=== PATIENT | male | born 1985 | race Caucasian/White ===

== ENCOUNTER 2018-09-06 07:58 | Emergency (ER) | payer SELFPAY ==
[2018-09-06] MEDS ORDERED: Ketorolac 60 MG/2 ML SDV IM ONE (08:13)
--- NOTE | 2018-09-06 08:19 | EDM.PDOC ---
ED HPI GENERAL MEDICAL PROBLEM - General Chief Complaint: Upper Extremity Injury/Pain Stated Complaint: LEFT ELBOW PAIN Time Seen by Provider: 09/06/18 08:13 - History of Present Illness INITIAL COMMENTS - FREE TEXT/NARRATIVE: HISTORY AND PHYSICAL: History of present illness: Patient 32-year-old white male with history of gouty arthritis presents with concern of acute right elbow pain this started somewhat yesterday and became quite severe today he denies any trauma he states this is exquisitely tender in any types of movement causes significant pain. He is not had involvement of his elbow on the past as related to his gouty arthritis is almost universally involved his toe. Review of systems: As per history of present illness and below otherwise all systems reviewed and negative. Past medical history: As per history of present illness and as reviewed below otherwise noncontributory. Surgical history: As per history of present illness and as reviewed below otherwise noncontributory. Social history: No reported history of drug or alcohol abuse. Family history: As per history of present illness and as reviewed below otherwise noncontributory. Physical exam: HEENT: Atraumatic, normocephalic, pupils reactive, negative for conjunctival pallor or scleral icterus, mucous membranes moist, throat clear, neck supple, nontender, trachea midline. Lungs: Clear to auscultation, breath sounds equal bilaterally, chest nontender. Heart: S1S2, regular, negative for clicks, rubs, or JVD. Abdomen: Soft, nondistended, nontender. Negative for masses or hepatosplenomegaly. Negative for costovertebral tenderness. Pelvis: Stable nontender. Genitourinary: Deferred. Rectal: Deferred. Extremities: Right elbow has some minor swelling and slight warmth to touch there's no significant erythema is no crepitation neurovascular exam is unremarkable he has limited range of motion secondary to pain.. Neuro: Awake, alert, oriented. Cranial nerves II through XII unremarkable. Cerebellum unremarkable. Motor and sensory unremarkable throughout. Exam nonfocal. Diagnostics: X-ray right elbow CBC uric acid Therapeutics: Toradol 60 mg IM Impression: #1 acute right elbow pain #2 history of gouty arthritis Definitive disposition and diagnosis as appropriate pending reevaluation and review of above. right elbow Pain Score (Numeric/FACES): 10 - Related Data Allergies Allergy/AdvReac Type Severity Reaction Status Date / Time No Known Allergies Allergy Verified 09/06/18 08:02 Home Meds: Home Meds . [No Known Home Meds] 09/06/18 [History] Past Medical History Musculoskeletal History: Reports: Gout - Infectious Disease History Infectious Disease History: Reports: Chicken Pox Social & Family History - Family History Family Medical History: Noncontributory - Tobacco Use Smoking Status *Q: Never Smoker - Recreational Drug Use Recreational Drug Use: No Review of Systems - Review of Systems Review Of Systems: ROS reveals no pertinent complaints other than HPI. ED EXAM, GENERAL - Physical Exam Exam: See Below (See dictation) Course - Vital Signs Last Recorded V/S: Last Vital Signs Temp 35.8 C 09/06/18 08:02 Pulse 102 H 09/06/18 08:02 Resp 18 09/06/18 08:02 BP 152/101 H 09/06/18 08:02 Pulse Ox 97 09/06/18 08:02 - Orders/Labs/Meds Orders: Active Orders 24 hr Category Date Time Status Elbow Min 3V Rt [CR] Stat Exams 09/06/18 08:13 Ordered CBC WITH AUTO DIFF [HEME] Stat Lab 09/06/18 08:13 Ordered URIC ACID [CHEM] Stat Lab 09/06/18 08:13 Ordered Meds: Medications Discontinued Medications Generic Name Dose Route Start Last Admin Trade Name [place] PRN Reason Stop Dose Admin Ketorolac Tromethamine 60 mg 09/06/18 08:13 09/06/18 08:20 Toradol IM 09/06/18 08:14 60 mg ONETIME ONE Administration Departure - Departure Time of Disposition: 08:23 Disposition: Home, Self-Care 01 Condition: Good Clinical Impression: Elbow pain, History of gout - Discharge Information Forms: ED Department Discharge Additional Instructions: The following information is given to patients seen in the emergency department who are being discharged to home. This information is to outline your options for follow-up care. We provide all patients seen in our emergency department with a follow-up referral. The need for follow-up, as well as the timing and circumstances, are variable depending upon the specifics of your emergency department visit. If you don't have a primary care physician on staff, we will provide you with a referral. We always advise you to contact your personal physician following an emergency department visit to inform them of the circumstance of the visit and for follow-up with them and/or the need for any referrals to a consulting specialist. The emergency department will also refer you to a specialist when appropriate. This referral assures that you have the opportunity for followup care with a specialist. All of these measure are taken in an effort to provide you with optimal care, which includes your followup. Under all circumstances we always encourage you to contact your private physician who remains a resource for coordinating your care. When calling for followup care, please make the office aware that this follow-up is from your recent emergency room visit. If for any reason you are refused follow-up, please contact the [facility] emergency department at and asked to speak to the emergency department charge nurse. Specialty Care - [facility] Professional [address], [address] [place] [address] Sling as directed indomethacin Ultram as prescribed follow-up orthopedic clinic above [facility] to schedule routine appointment and return as needed as discussed - My Orders Last 24 Hours: My Active Orders 09/06/18 08:13 Elbow Min 3V Rt [CR] Stat CBC WITH AUTO DIFF [HEME] Stat URIC ACID [CHEM] Stat - Assessment/Plan Last 24 Hours: My Active Orders 09/06/18 08:13 Elbow Min 3V Rt [CR] Stat CBC WITH AUTO DIFF [HEME] Stat URIC ACID [CHEM] Stat
--- NOTE | 2018-09-06 09:00 | CR ---
EXAMINATION: Right elbow HISTORY: Pain COMPARISON: None TECHNIQUE: 2 views FINDINGS/IMPRESSION: There is no acute osseous abnormality, dislocation, or fracture. Bone mineralization and joint spaces are preserved. Likely small joint effusion.
== END 2018-09-06 09:21 | disposition home or self-care (01) ==
LOC: MW.ED 07:58
DX: M25.522 Pain in left elbow (principal); M10.9 Gout, unspecified
CPT/HCPCS: 36415; 73070; 84550; 85025; 96372; 99283; J1885